=== PATIENT | male | born 1985 | race Caucasian/White ===

== ENCOUNTER 2020-04-25 08:17 | Emergency (ER) | payer MEDICAID, SELFPAY ==
[~2020-04-25] VITALS: Ht 182.9 cm; Wt 113.4 kg
[2020-04-25 08:25] VITALS: BP_SYST 136
== END 2020-04-25 08:50 | disposition home or self-care (01) ==
LOC: SED 08:17
DX: J02.9 Acute pharyngitis, unspecified (principal); F17.210 Nicotine dependence, cigarettes, uncomplicated; Z20.828 Contact with and (suspected) exposure to other viral communicable diseases
CPT/HCPCS: 99283; U0003